=== PATIENT | female | born 1950 | race Caucasian/White ===

== ENCOUNTER 2020-05-17 11:10 | Day surgery (SDC) | payer OTHER ==
[2020-05-10 11:08] VITALS: BMI 29.9
--- OUTSIDE RECORDS SUMMARY | 2020-05-17 11:15 | XMS ---
:1950 Author Organization [facility] Support Name Relationship Address Phone UE, UNEMPLOYED Unavailable Unavailable Unavailable UE Unavailable Unavailable Unavailable DANIKA ISSA SISTER [address] [facility] [place] [address] CHRISELIANA HOUSTON Unavailable [address] [facility] [place] [address] Re-disclosure Warning The records that you are about to access may contain information from federally- assisted alcohol or drug abuse programs. If such information is present, then the following federally mandated warning applies: This information has been disclosed to you from records protected by federal confidentiality rules (42 CFR part 2). The federal rules prohibit you from making any further disclosure of this information unless further disclosure is expressly permitted by the written consent of the person to whom it pertains or as otherwise permitted by 42 CFR part 2. A general authorization for the release of medical or other information is NOT sufficient for this purpose. The Federal rules restrict any use of the information to criminally investigate or prosecute any alcohol or drug abuse patient.The records that you are about to access may contain highly sensitive health information, the redisclosure of which is protected by Article 27-F of the [facility] Public Health law. If you continue you may haveaccess to information: Regarding HIV / AIDS; Provided by facilities licensed or operated by the [facility] Office of Mental Health; or Provided by the [facility] Office for People With Developmental Disabilities. If such information is present, then the following [facility] mandated warning applies: This information has been disclosed to you from confidential records which are protected by state law. State law prohibits you from making any further disclosure of this information without the specific written consent of the person to whom it pertains, or as otherwise permitted by law. Any unauthorized further disclosure in violation of state law may result in a fine or custodial sentence or both. A general authorization for the release of medical or other information is NOT sufficient authorization for further disclosure. Insurance Providers Payer name Policy type Policy ID Covered Covered republican's Policy P danielle / Coverage republican ID relationship to [employer] ormation type har[employer] MEDICARE [id number]
[2020-05-17] MEDS ORDERED: OFLOXACIN 0.3% OPHTHALMIC SOLUTION 5 ML BOTTLE ONE (11:33)
[2020-05-17] MEDS ORDERED: CYCLOPENTOLATE HCL 1% OPHTH SOLN 2 ML BOTTLE ONE (11:33)
[2020-05-17] MEDS ORDERED: TROPICAMIDE 1% OPHTH SOLN 15 ML BOTTLE ONE (11:33)
[2020-05-17] MEDS ORDERED: KETOROLAC TROMETHAMINE 0.5% EYE DROP 1 DROP DROPS ONE (11:33)
[2020-05-17] MEDS ORDERED: PHENYLEPHRINE 2.5% OPHTH SOLN 15 ML BOTTLE ONE (11:34)
[2020-05-17] MEDS: KETOROLAC TROMETHAMINE 0.5% EYE DROP 1 DROP DROPS OS SCH ×5 (11:50→12:10)
[2020-05-17] MEDS: OFLOXACIN 0.3% OPHTHALMIC SOLUTION 5 ML BOTTLE OS SCH ×5 (11:50→12:10)
[2020-05-17] MEDS: TROPICAMIDE 1% OPHTH SOLN 15 ML BOTTLE OS SCH ×5 (11:50→12:10)
[2020-05-17] MEDS: CYCLOPENTOLATE HCL 1% OPHTH SOLN 2 ML BOTTLE OS SCH ×5 (11:50→12:10)
[2020-05-17] MEDS: PHENYLEPHRINE 2.5% OPHTH SOLN 15 ML BOTTLE OS SCH ×5 (11:50→12:10)
[2020-05-17 11:54] VITALS: TEMP 98.8
[2020-05-17] MEDS ORDERED: MIDAZOLAM HCL 2 MG/2 ML SINGLE DOSE VIAL ONE (13:50)
[2020-05-17] MEDS ORDERED: ACETAMINOPHEN 325 MG TABLET (FP) PO PRN (14:25)
[2020-05-17] MEDS ORDERED: BACITRACIN/POLYMYXIN OPH OINT 3.5 GM TUBE ONE (14:45)
[2020-05-17] MEDS ORDERED: TETRACAINE 0.5% OPHTH SOLN 2 ML BOTTLE ONE (14:46)
[2020-05-17] MEDS ORDERED: NEO/POLYMYX B SULF/DEXAMETH OPHTHALMIC 5ML BOTTLE ONE (14:46)
[2020-05-17] MEDS ORDERED: BETAXOLOL HCL 0.25% OPHTHALMIC 10 ML DROPSBTL ONE (14:46)
[2020-05-17] MEDS ORDERED: POVIDONE-IODINE 5% OPHTHALMIC PREP 30 ML SOLUTION ONE (14:46)
[2020-05-17] MEDS ORDERED: EPI-SHUGARCAINE (EPINEPHRINE 0.025% & LIDOCAINE-PF 0.75%) 4ML ONE (14:46)
--- NOTE | 2020-05-17 15:10 | OP ---
DATE OF OPERATION: 05/17/2020 PREOPERATIVE DIAGNOSIS: Cataract, left eye. POSTOPERATIVE DIAGNOSIS: Cataract, left eye. PROCEDURE: Cataract extraction via phacoemulsification with insertion of posterior chamber lens implant, left eye. SURGEON: Barrett Aguilar MD SIGHTER: Ada Ho MD ANESTHESIA: Topical with sedation. ESTIMATED BLOOD LOSS: Less than 1 mL. COMPLICATIONS: None. SPECIMENS: None. PROCEDURE: The patient was identified in the holding area. After all risks, benefits and alternatives were explained to the patient, informed consent was obtained. The left eye was marked with a marking pen. The patient then entered the operating room on an eye stretcher. After formal timeout was performed, topical tetracaine eye drops were instilled onto the left eye. Left eye was then prepped and draped in usual sterile fashion. An eyelid speculum was placed beneath the eyelids of the left eye. An inferotemporal paracentesis incision was created using a 15-degree blade. Topical preservative-free epinephrine and preservative-free lidocaine were then injected into the anterior chamber. Viscoelastic was then injected into the anterior chamber. A 2.4-mm keratome blade was then used to make a superotemporal incision. A 360-degree continuous curvilinear capsulorrhexis was then created using bent cystotome and Utrata forceps. Hydrodissection was performed using balanced saline solution on a cannula. Phacoemulsification was introduced. It disassembled and removed the nucleus in its entirety. Irrigation/aspiration was then used to remove any remaining cortical material from the eye. The capsular bag was reformed using viscoelastic. An Marcos model [id number] with a power of 19.5 diopters, serial number [id number] was inspected, found to be defect free and injected in the capsular bag. Irrigation/aspiration was then used to remove any remaining viscoelastic from the eye. All wounds were hydrated with balanced saline solution, noted to be watertight. There was a red reflex present. The anterior chamber was deep. The lens was perfectly centered in the capsular bag and the eye had adequate pressure. Topical antibiotic eye drops and ointment were then administered to the left eye. The eyelid speculum was removed from the left eye. Left eye was shielded. The patient tolerated the procedure well, left the operating room in stable condition, to follow up in the eye clinic tomorrow morning at 10 o'clock. Nataly [id number]
[2020-05-17 15:25] VITALS: BP 134/86; PULSE 68
== END 2020-05-17 15:15 | disposition home or self-care (01) ==
LOC: FASU 11:10
PROVIDERS: ATTEND Ophthalmology
PROC: 08RK3JZ Replacement of Left Lens with Synthetic Substitute, Percutaneous Approach (ICD-10-PCS; principal; 2020-05-17 13:59)
DX: H26.9 Unspecified cataract (principal)

== ENCOUNTER 2021-05-09 09:24 | Day surgery (SDC) | payer OTHER ==
[~2021-05-09 09:24] MED LIST: CYCLOPENTOLATE HCL 1% OPHTH SOLN 2 ML BOTTLE OD SCH; KETOROLAC TROMETHAMINE 0.5% EYE DROP 1 DROP DROPS OD SCH; OFLOXACIN 0.3% OPHTHALMIC SOLUTION 5 ML BOTTLE OD SCH; PHENYLEPHRINE 2.5% OPHTH SOLN 15 ML BOTTLE OD SCH; TROPICAMIDE 1% OPHTH SOLN 15 ML BOTTLE OD SCH
[2021-05-09] MEDS ORDERED: KETOROLAC TROMETHAMINE 0.5% EYE DROP 1 DROP DROPS ONE (09:39)
[2021-05-09] MEDS ORDERED: TROPICAMIDE 1% OPHTH SOLN 15 ML BOTTLE ONE (09:39)
[2021-05-09] MEDS ORDERED: CYCLOPENTOLATE HCL 1% OPHTH SOLN 2 ML BOTTLE ONE (09:39)
[2021-05-09] MEDS ORDERED: OFLOXACIN 0.3% OPHTHALMIC SOLUTION 5 ML BOTTLE ONE (09:39)
[2021-05-09] MEDS ORDERED: PHENYLEPHRINE 2.5% OPHTH SOLN 15 ML BOTTLE ONE (09:39)
[2021-05-09] MEDS ORDERED: OFLOXACIN 0.3% OPHTHALMIC SOLUTION 5 ML BOTTLE OD ONE ×5 (09:50→10:10)
[2021-05-09] MEDS ORDERED: PHENYLEPHRINE 2.5% OPHTH SOLN 15 ML BOTTLE OD ONE ×5 (09:50→10:10)
[2021-05-09] MEDS ORDERED: KETOROLAC TROMETHAMINE 0.5% EYE DROP 1 DROP DROPS OD ONE ×5 (09:50→10:10)
[2021-05-09] MEDS ORDERED: CYCLOPENTOLATE HCL 1% OPHTH SOLN 2 ML BOTTLE OD ONE ×5 (09:50→10:10)
[2021-05-09] MEDS ORDERED: TROPICAMIDE 1% OPHTH SOLN 15 ML BOTTLE OD ONE ×4 (09:50→10:10)
[2021-05-09 10:14] VITALS: BMI 28.7
[2021-05-09] MEDS ORDERED: BACITRACIN/POLYMYXIN OPH OINT 3.5 GM TUBE ONE (11:09)
[2021-05-09] MEDS ORDERED: BETAXOLOL HCL 0.25% OPHTHALMIC 10 ML DROPSBTL ONE (11:09)
[2021-05-09] MEDS ORDERED: EPI-SHUGARCAINE (EPINEPHRINE 0.025% & LIDOCAINE-PF 0.75%) 4ML ONE (11:10)
[2021-05-09] MEDS ORDERED: NEO/POLYMYX B SULF/DEXAMETH OPHTHALMIC 5ML BOTTLE ONE (11:10)
[2021-05-09] MEDS ORDERED: POVIDONE-IODINE 5% OPHTHALMIC PREP 30 ML SOLUTION ONE (11:10)
[2021-05-09] MEDS ORDERED: TETRACAINE 0.5% OPHTH SOLN 2 ML BOTTLE ONE (11:10)
[2021-05-09] MEDS ORDERED: MIDAZOLAM HCL 2 MG/2 ML SINGLE DOSE VIAL ONE (11:14)
[2021-05-09] MEDS ORDERED: ACETAMINOPHEN 325 MG TABLET (FP) PO PRN (12:09)
[2021-05-09 12:30] VITALS: TEMP 98.1
[2021-05-09 12:48] VITALS: BP 112/71; PULSE 76
== END 2021-05-09 13:00 | disposition home or self-care (01) ==
LOC: FASU 09:24
PROVIDERS: ATTEND Ophthalmology
PROC: 08RJ3JZ Replacement of Right Lens with Synthetic Substitute, Percutaneous Approach (ICD-10-PCS; principal; 2021-05-09 11:43)
DX: H26.9 Unspecified cataract (principal)

== ENCOUNTER 2023-06-24 11:12 | Observation (INO) | payer OTHER ==
[2023-06-24 11:23] VITALS: BMI 22.6
[2023-06-24] MEDS ORDERED: ACETAMINOPHEN 1000 MG/100 ML BAG IVPB ONE (12:17)
[2023-06-24] MEDS ORDERED: ACETAMINOPHEN INJECTION 100 ML IVPB ONE (12:20)
[2023-06-24 12:54] LABS: BASO % 0.6 % (0-2.0); EOS % 0.1 % (0-4.5); HEMATOCRIT 43.5 % (32.4-45.2); HEMOGLOBIN 14.7 GM/dL (10.7-15.3); LYMPH % 12.4 % (8-40); MCH 31.2 pg (25.7-33.7); MCHC 33.7 g/dl (32.0-36.0); MEAN CELL VOLUME 92.7 fl (80-96); MEAN PLT VOLUME 7.5 fl (7.5-11.1); NEUT % 79.9 % (42.8-82.8); PLATELET COUNT 355 10^3/uL (134-434); RDW 14.3 % (11.6-15.6); WHITE BLOOD COUNT 14.1 K/mm3 (4.0-10.0)
[2023-06-24 13:04] LABS: INR 1.1 (0.83-1.09); PROTHROMBIN TIME (PATIENT) 12.7 SEC (9.7-13.0)
[2023-06-24 13:06] LABS: ACTIVATED PTT 31.7 SECONDS (25.2-36.5)
[2023-06-24 13:07] LABS: POTASSIUM 5.4 mmol/L (3.5-5.1)
[2023-06-24 13:10] LABS: ALBUMIN 3.3 g/dl (3.4-5.0); BLOOD UREA NITROGEN 15.9 mg/dL (7-18); CALCIUM 9.2 mg/dL (8.5-10.1)
[2023-06-24 13:14] LABS: CREATININE 1.1 mg/dL (0.55-1.3)
[2023-06-24 13:15] LABS: BILIRUBIN,TOTAL 0.4 mg/dL (0.2-1)
[2023-06-24] MEDS ORDERED: LACTATED RINGERS SOLUTION 1000 ML INFUS.BAG IV ONE (14:56)
[2023-06-24] MEDS ORDERED: MAG HYDROX/AL HYDROX/SIMETH 30 ML UNIT-DOSE CUP PO ONE (15:29)
[2023-06-24] MEDS ORDERED: FAMOTIDINE 20 MG/50 ML IVPB 20 MG/50 ML MG IVPB ONE ×2 (15:29→15:33)
[2023-06-24] MEDS ORDERED: MAG HYDROX/AL HYDROX/SIMETH 30 ML UNIT-DOSE CUP ONE (15:33)
[2023-06-24 16:21] LABS: PH,URINE 6.5 (5.0-8.0); URINE APPEARANCE CLEAR; URINE BILIRUBIN NEGATIVE (NEGATIVE); URINE COLOR YELLOW; URINE GLUCOSE (UA) NEGATIVE (NEGATIVE); URINE KETONE TRACE (NEGATIVE); URINE LEUK ESTERASE NEGATIVE (NEGATIVE); URINE NITRITE POSITIVE (NEGATIVE); URINE PROTEIN NEGATIVE (NEGATIVE); URINE UROBILINOGEN 0.2 mg/dL (0.2-1.0)
[2023-06-24] MEDS ORDERED: MAG HYDROX/AL HYDROX/SIMETH 30 ML UNIT-DOSE CUP PO PRN (16:37)
[2023-06-24] MEDS ORDERED: ACETAMINOPHEN 325 MG TABLET (FP) PO PRN (18:41)
[2023-06-24] MEDS: PANTOPRAZOLE 40 MG TABLET PO SCH (19:47)
[2023-06-24] MEDS: ATORVASTATIN CA 40 MG TABLET (FP) PO SCH (21:16)
[2023-06-24] MEDS: NORTRIPTYLINE HCL 10 MG CAPSULE PO SCH (21:54)
[2023-06-25 07:57] LABS: BASO % 0.8 % (0-2.0); EOS % 1.2 % (0-4.5); HEMATOCRIT 41.6 % (32.4-45.2); HEMOGLOBIN 13.5 GM/dL (10.7-15.3); LYMPH % 24.6 % (8-40); MCH 30.8 pg (25.7-33.7); MCHC 32.3 g/dl (32.0-36.0); MEAN CELL VOLUME 95.2 fl (80-96); MEAN PLT VOLUME 8.1 fl (7.5-11.1); MONO % 10.3 % (3.8-10.2); NEUT % 63.1 % (42.8-82.8); PLATELET COUNT 334 10^3/uL (134-434); RBC 4.37 M/mm3 (3.60-5.2); RDW 14.3 % (11.6-15.6); WHITE BLOOD COUNT 11.4 K/mm3 (4.0-10.0)
[2023-06-25 08:20] LABS: ALBUMIN 3.3 g/dl (3.4-5.0); BLOOD UREA NITROGEN 12.6 mg/dL (7-18); CALCIUM 8.9 mg/dL (8.5-10.1); MAGNESIUM 2.3 mg/dL (1.8-2.4)
[2023-06-25 08:21] LABS: PHOSPHOROUS 3.7 mg/dL (2.5-4.9)
[2023-06-25 08:22] LABS: BILIRUBIN,TOTAL 0.5 mg/dL (0.2-1)
[2023-06-25 08:23] LABS: TOT PROT 7.4 g/dl (6.4-8.2)
[2023-06-25] MEDS: PANTOPRAZOLE 40 MG TABLET PO SCH (09:49)
[2023-06-25] MEDS: ASPIRIN COATED 81 MG TABLET.EC PO SCH (09:49)
[2023-06-25] MEDS ORDERED: ENOXAPARIN NA (PORCINE) 40 MG/0.4 ML DISP.SYRIN SQ SCH (10:00)
[2023-06-25] MEDS: ATORVASTATIN CA 40 MG TABLET (FP) PO SCH (21:21)
[2023-06-25] MEDS: NORTRIPTYLINE HCL 10 MG CAPSULE PO SCH (21:22)
[2023-06-25] MEDS ORDERED: MELATONIN 1 MG TABLET PO SCH (22:00)
[2023-06-26 07:50] LABS: BASO % 0.8 % (0-2.0); EOS % 1.3 % (0-4.5); HEMATOCRIT 42.8 % (32.4-45.2); HEMOGLOBIN 13.9 GM/dL (10.7-15.3); LYMPH % 28.4 % (8-40); MCH 30.9 pg (25.7-33.7); MCHC 32.5 g/dl (32.0-36.0); MEAN CELL VOLUME 94.9 fl (80-96); MONO % 9.9 % (3.8-10.2); NEUT % 59.6 % (42.8-82.8); PLATELET COUNT 336 10^3/uL (134-434); RBC 4.51 M/mm3 (3.60-5.2); WHITE BLOOD COUNT 12.2 K/mm3 (4.0-10.0)
[2023-06-26 08:01] LABS: POTASSIUM 4.3 mmol/L (3.5-5.1)
[2023-06-26 08:04] LABS: CALCIUM 9.4 mg/dL (8.5-10.1)
[2023-06-26 08:06] LABS: ALBUMIN 3.3 g/dl (3.4-5.0); BLOOD UREA NITROGEN 12.7 mg/dL (7-18); MAGNESIUM 2.6 mg/dL (1.8-2.4)
[2023-06-26 08:08] LABS: CREATININE 0.8 mg/dL (0.55-1.3)
[2023-06-26 08:09] LABS: BILIRUBIN,TOTAL 0.7 mg/dL (0.2-1); TOT PROT 7.5 g/dl (6.4-8.2)
[2023-06-26] MEDS: ASPIRIN COATED 81 MG TABLET.EC PO SCH (09:48)
[2023-06-26] MEDS: PANTOPRAZOLE 40 MG TABLET PO SCH (09:48)
[2023-06-26] MEDS ORDERED: ENOXAPARIN NA (PORCINE) 40 MG/0.4 ML DISP.SYRIN SQ SCH (10:00)
[2023-06-26 10:04] VITALS: RESP 18
[2023-06-26] MEDS ORDERED: LISINOPRIL 5 MG TABLET PO SCH (12:30)
[2023-06-26 18:26] VITALS: BP 150/89; PULSE 87; TEMP 99.1
[2023-06-27] MEDS ORDERED: CLOPIDOGREL BISULFATE 75 MG TABLET (FP) PO SCH (10:00)
== END 2023-06-26 19:00 | disposition home or self-care (01) ==
LOC: JER 11:12 → JERBED 15:40 → J4W 16:43
PROVIDERS: ADMIT Internal Medicine; ATTEND Internal Medicine
PROC: 3E033NZ Introduction of Analgesics, Hypnotics, Sedatives into Peripheral Vein, Percutaneous Approach (ICD-10-PCS; principal; 2023-06-24)
PROC: 3E023GC Introduction of Other Therapeutic Substance into Muscle, Percutaneous Approach (ICD-10-PCS; 2023-06-24)
PROC: 3E033GC Introduction of Other Therapeutic Substance into Peripheral Vein, Percutaneous Approach (ICD-10-PCS; 2023-06-24)
PROC: 3E0337Z Introduction of Electrolytic and Water Balance Substance into Peripheral Vein, Percutaneous Approach (ICD-10-PCS; 2023-06-24)
DX: R07.9 Chest pain, unspecified (principal); K21.9 Gastro-esophageal reflux disease without esophagitis; I69.859 Hemiplegia and hemiparesis following other cerebrovascular disease affecting unspecified side; F41.9 Anxiety disorder, unspecified; R26.89 Other abnormalities of gait and mobility; D72.829 Elevated white blood cell count, unspecified; E87.5 Hyperkalemia; R73.9 Hyperglycemia, unspecified; Z88.0 Allergy status to penicillin
CPT/HCPCS: 0241U-QW; 36415; 70450-TC; 70551-TC; 71045-TC-FY; 80053; 80061; 81003; 83036; 83690; 83735; 84100; 84484; 85025; 85610; 85730; 86850; 86900; 86901; 87086; 87186; 93005; 93010; 93306-TC; 93880-TC; 96361; 96365; 96372; 96375; 97116-GP; 97162-GP; 99285-25; G0378

== ENCOUNTER 2023-07-19 05:48 | Observation (INO) | payer OTHER ==
[2023-07-19] MEDS ORDERED: ONDANSETRON 4 MG/2 ML VIAL IVPUSH ONE (07:48)
[2023-07-19] MEDS ORDERED: FAMOTIDINE 20 MG/50 ML IVPB 20 MG/50 ML MG IVPB ONE ×3 (07:48→08:31)
[2023-07-19] MEDS ORDERED: ACETAMINOPHEN 1000 MG/100 ML BAG IVPB ONE (07:48)
[2023-07-19] MEDS ORDERED: MAG HYDROX/AL HYDROX/SIMETH 30 ML UNIT-DOSE CUP PO ONE (07:48)
[2023-07-19] MEDS ORDERED: SODIUM CHLORIDE 0.9% 500 ML INFUS.BAG IV ONE ×2 (07:54→08:05)
[2023-07-19] MEDS ORDERED: ONDANSETRON 4 MG/2 ML VIAL ONE (08:10)
[2023-07-19] MEDS ORDERED: ACETAMINOPHEN INJECTION 100 ML IVPB ONE (08:10)
[2023-07-19] MEDS ORDERED: MAG HYDROX/AL HYDROX/SIMETH 30 ML UNIT-DOSE CUP ONE (08:10)
[2023-07-19 08:21] LABS: BASO % 0.5 % (0-2.0); EOS % 0.6 % (0-4.5); LYMPH % 11.5 % (8-40); MCH 30.7 pg (25.7-33.7); MCHC 32.6 g/dl (32.0-36.0); MEAN CELL VOLUME 93.9 fl (80-96); MEAN PLT VOLUME 8.1 fl (7.5-11.1); MONO % 6.9 % (3.8-10.2); NEUT % 80.5 % (42.8-82.8); PLATELET COUNT 298 10^3/uL (134-434); RBC 4.25 M/mm3 (3.60-5.2); WHITE BLOOD COUNT 12.8 K/mm3 (4.0-10.0)
[2023-07-19 08:25] LABS: INR 1.02 (0.83-1.09); PROTHROMBIN TIME (PATIENT) 11.8 SEC (9.7-13.0)
[2023-07-19 08:27] LABS: ACTIVATED PTT 20.9 SECONDS (25.2-36.5)
[2023-07-19 08:35] LABS: POTASSIUM 4.3 mmol/L (3.5-5.1)
[2023-07-19 08:38] LABS: BLOOD UREA NITROGEN 18.5 mg/dL (7-18); CALCIUM 9.2 mg/dL (8.5-10.1)
[2023-07-19 08:39] LABS: ALBUMIN 3.4 g/dl (3.4-5.0)
[2023-07-19 08:41] LABS: CREATININE 1.1 mg/dL (0.55-1.3)
[2023-07-19 08:43] LABS: BILIRUBIN,TOTAL 0.4 mg/dL (0.2-1)
[2023-07-19 08:44] LABS: TOT PROT 7.7 g/dl (6.4-8.2)
[2023-07-19] MEDS ORDERED: ACETAMINOPHEN 325 MG TABLET (FP) PO PRN (17:55)
[2023-07-19] MEDS ORDERED: SODIUM CHLORIDE 1,000 ML IV STA ×2 (18:16→18:17)
[2023-07-19] MEDS: SUCRALFATE 1 GM TABLET (FP) PO SCH (20:53)
[2023-07-19] MEDS ORDERED: ATORVASTATIN CA 20 MG TABLET (FP) ONE (21:18)
[2023-07-19] MEDS ORDERED: ATORVASTATIN CA 40 MG TABLET (FP) PO SCH (22:00)
[2023-07-19] MEDS ORDERED: NORTRIPTYLINE HCL 10 MG CAPSULE PO SCH (22:00)
[2023-07-20 02:08] LABS: URINE APPEARANCE CLEAR; URINE BILIRUBIN NEGATIVE (NEGATIVE); URINE COLOR YELLOW; URINE GLUCOSE (UA) NEGATIVE (NEGATIVE); URINE KETONE NEGATIVE (NEGATIVE); URINE LEUK ESTERASE NEGATIVE (NEGATIVE); URINE NITRITE NEGATIVE (NEGATIVE); URINE PROTEIN NEGATIVE (NEGATIVE); URINE UROBILINOGEN 0.2 mg/dL (0.2-1.0)
[2023-07-20 04:50] VITALS: BMI 26.5
[2023-07-20] MEDS: SUCRALFATE 1 GM TABLET (FP) PO SCH (06:01)
[2023-07-20 07:30] LABS: EOS % 1.8 % (0-4.5); HEMATOCRIT 35.2 % (32.4-45.2); HEMOGLOBIN 11.4 GM/dL (10.7-15.3); LYMPH % 24.1 % (8-40); MCH 30.9 pg (25.7-33.7); MCHC 32.5 g/dl (32.0-36.0); MEAN CELL VOLUME 95.2 fl (80-96); MEAN PLT VOLUME 7.9 fl (7.5-11.1); MONO % 8.8 % (3.8-10.2); NEUT % 64.3 % (42.8-82.8); PLATELET COUNT 253 10^3/uL (134-434); RDW 13.6 % (11.6-15.6); WHITE BLOOD COUNT 11.2 K/mm3 (4.0-10.0)
[2023-07-20 07:34] LABS: CHLORIDE 110 mmol/L (98-107); POTASSIUM 3.8 mmol/L (3.5-5.1); SODIUM 142 mmol/L (136-145)
[2023-07-20 07:36] LABS: CALCIUM 8.6 mg/dL (8.5-10.1)
[2023-07-20 07:37] LABS: ANION GAP 7 mmol/L (4-13); BLOOD UREA NITROGEN 12.7 mg/dL (7-18); CO2 26 mmol/L (21-32); GLUCOSE,RANDOM 98 mg/dL (74-106)
[2023-07-20 07:40] LABS: CREATININE 0.9 mg/dL (0.55-1.3); SGOT/AST 14 U/L (15-37); SGPT/ALT 19 U/L (13-61)
[2023-07-20 07:42] LABS: BILIRUBIN,TOTAL 0.2 mg/dL (0.2-1); TOT PROT 5.9 g/dl (6.4-8.2)
[2023-07-20 07:43] LABS: ALK PHOS 43 U/L (45-117)
[2023-07-20 08:24] LABS: ALBUMIN 2.6 g/dl (3.4-5.0)
[2023-07-20] MEDS ORDERED: CLOPIDOGREL BISULFATE 75 MG TABLET (FP) PO SCH (10:00)
[2023-07-20] MEDS ORDERED: LISINOPRIL 5 MG TABLET PO SCH (10:00)
[2023-07-20] MEDS ORDERED: PANTOPRAZOLE 40 MG TABLET PO SCH (10:00)
[2023-07-20] MEDS ORDERED: CHOLECALCIFEROL (VIT D3) 1,000 UNIT (25 MCG) TABLET PO SCH (10:00)
[2023-07-20] MEDS ORDERED: ENOXAPARIN NA (PORCINE) 40 MG/0.4 ML DISP.SYRIN SQ SCH (10:00)
[2023-07-20 14:35] VITALS: BP 124/60; PULSE 77; RESP 17; TEMP 98.2
[2023-07-20] MEDS ORDERED: BISACODYL 10 MG SUPP.RECT PR ONE (14:45)
[2023-07-20] MEDS ORDERED: GLYCERIN 1 RECTAL SUPPOSITORY, ADULT RC ONE (15:00)
[2023-07-20] MEDS ORDERED: POLYETHYLENE GLYCOL (HEALTHYLAX) 3350 17 GM PACKET PO SCH (22:00)
== END 2023-07-20 17:30 | disposition home or self-care (01) ==
LOC: JER 05:48 → JERBED 16:41 → J4W 19:11
PROVIDERS: ADMIT Internal Medicine; ATTEND Internal Medicine
PROC: 3E033NZ Introduction of Analgesics, Hypnotics, Sedatives into Peripheral Vein, Percutaneous Approach (ICD-10-PCS; principal; 2023-07-19)
PROC: 3E023GC Introduction of Other Therapeutic Substance into Muscle, Percutaneous Approach (ICD-10-PCS; 2023-07-19)
PROC: 3E033GC Introduction of Other Therapeutic Substance into Peripheral Vein, Percutaneous Approach (ICD-10-PCS; 2023-07-19)
PROC: 3E0337Z Introduction of Electrolytic and Water Balance Substance into Peripheral Vein, Percutaneous Approach (ICD-10-PCS; 2023-07-19)
DX: K59.09 Other constipation (principal); R10.13 Epigastric pain; R07.9 Chest pain, unspecified; K21.9 Gastro-esophageal reflux disease without esophagitis; R42 Dizziness and giddiness; D72.829 Elevated white blood cell count, unspecified; E86.0 Dehydration; R19.7 Diarrhea, unspecified; I69.959 Hemiplegia and hemiparesis following unspecified cerebrovascular disease affecting unspecified side; F41.9 Anxiety disorder, unspecified; R93.89 Abnormal findings on diagnostic imaging of other specified body structures; Z88.0 Allergy status to penicillin
CPT/HCPCS: 0241U-QW; 36415; 71045-TC-FY; 74177-TC; 80053; 81003; 82550; 83690; 84484; 85025; 85610; 85730; 86140; 93005; 93010; 97116-GP; 97162-GP; 99285-25; G0378; Q9967

== ENCOUNTER 2023-09-20 07:04 | Day surgery (SDC) | payer OTHER ==
[2023-08-21 15:56] VITALS: BMI 23.3
[2023-09-20 07:27] VITALS: RESP 18
[2023-09-20] MEDS ORDERED: LIDOCAINE HCL/PF 2% SDV 5ML VIAL ONE (07:48)
[2023-09-20] MEDS ORDERED: PROPOFOL 120 ML ONE (07:48)
[2023-09-20 09:15] VITALS: TEMP 97
[2023-09-20 10:49] VITALS: BP 119/65; PULSE 61
== END 2023-09-20 10:15 | disposition home or self-care (01) ==
LOC: FASU-ENDO 07:04
PROVIDERS: ATTEND Internal Medicine Gastroenterology
PROC: 0DJD8ZZ Inspection of Lower Intestinal Tract, Via Natural or Artificial Opening Endoscopic (ICD-10-PCS; principal; 2023-09-20 08:53)
DX: R10.9 Unspecified abdominal pain (principal); K64.1 Second degree hemorrhoids

== ENCOUNTER 2023-11-12 08:29 | Emergency (ER) | payer OTHER ==
[2023-11-12 08:39] VITALS: BMI 24.1
[2023-11-12] MEDS ORDERED: SUCRALFATE 1 GM TABLET (FP) ONE (09:44)
[2023-11-12] MEDS ORDERED: ACETAMINOPHEN INJECTION 100 ML IVPB ONE (09:44)
[2023-11-12] MEDS ORDERED: FAMOTIDINE 20 MG/50 ML IVPB 20 MG/50 ML MG IVPB ONE (09:45)
[2023-11-12] MEDS ORDERED: MAG HYDROX/AL HYDROX/SIMETH 30 ML UNIT-DOSE CUP ONE (09:45)
[2023-11-12 09:56] LABS: BASO % 0.9 % (0-2.0); HEMATOCRIT 45.1 % (32.4-45.2); HEMOGLOBIN 14.9 GM/dL (10.7-15.3); LYMPH % 17.9 % (8-40); MCH 31.4 pg (25.7-33.7); MCHC 33.1 g/dl (32.0-36.0); MEAN PLT VOLUME 7.5 fl (7.5-11.1); NEUT % 72.2 % (42.8-82.8); PLATELET COUNT 302 10^3/uL (134-434); RBC 4.75 M/mm3 (3.60-5.2); RDW 13.6 % (11.6-15.6); WHITE BLOOD COUNT 9.8 K/mm3 (4.0-10.0)
[2023-11-12] MEDS: MAG HYDROX/AL HYDROX/SIMETH 30 ML UNIT-DOSE CUP PO ONE (10:02)
[2023-11-12] MEDS: SODIUM CHLORIDE 0.9% 500 ML INFUS.BAG IV ONE (10:02)
[2023-11-12] MEDS: ACETAMINOPHEN 1000 MG/100 ML BAG IVPB ONE (10:02)
[2023-11-12] MEDS: SUCRALFATE 1 GM TABLET (FP) PO ONE (10:02)
[2023-11-12] MEDS: FAMOTIDINE 20 MG/50 ML IVPB 20 MG/50 ML MG IVPB ONE (10:03)
[2023-11-12 10:15] LABS: POTASSIUM 4.3 mmol/L (3.5-5.1)
[2023-11-12 10:17] LABS: ALBUMIN 3.3 g/dl (3.4-5.0); CALCIUM 9.3 mg/dL (8.5-10.1)
[2023-11-12 10:18] LABS: BLOOD UREA NITROGEN 19.6 mg/dL (7-18); MAGNESIUM 2.5 mg/dL (1.8-2.4)
[2023-11-12 10:20] LABS: CREATININE 0.8 mg/dL (0.55-1.3)
[2023-11-12 10:22] LABS: BILIRUBIN,TOTAL 0.3 mg/dL (0.2-1); TOT PROT 7.3 g/dl (6.4-8.2)
[2023-11-12 12:37] VITALS: BP 143/56; PULSE 77; RESP 16; TEMP 98.2
== END 2023-11-12 13:08 | disposition home or self-care (01) ==
LOC: JER 08:29
PROC: 3E033GC Introduction of Other Therapeutic Substance into Peripheral Vein, Percutaneous Approach (ICD-10-PCS; principal; 2023-11-12)
PROC: 3E033NZ Introduction of Analgesics, Hypnotics, Sedatives into Peripheral Vein, Percutaneous Approach (ICD-10-PCS; 2023-11-12)
DX: R10.13 Epigastric pain (principal); R00.2 Palpitations; R07.9 Chest pain, unspecified; R06.02 Shortness of breath; R20.0 Anesthesia of skin
CPT/HCPCS: 36415; 71046-TC-FY; 80053; 83690; 83735; 84484; 85025; 93005; 93010; 93970-TC; 99285-25; J0131

== ENCOUNTER 2024-04-29 10:15 | Inpatient (IN) | payer OTHER ==
[2024-04-29 10:40] VITALS: BMI 24.1
[2024-04-29] MEDS ORDERED: ACETYLCYSTEINE INJECTION 20% 9,900 MG in DEXTROSE 5%-WATER - 250 ML IVPB ONE (11:12)
[2024-04-29] MEDS ORDERED: ACETYLCYSTEINE INJECTION 20% 3,300 MG in DEXTROSE 5%-WATER - 500 ML IVPB ONE (11:15)
[2024-04-29] MEDS ORDERED: WATER IVPB ONE (11:16)
[2024-04-29] MEDS ORDERED: ACETYLCYSTEINE IVPB ONE (11:16)
[2024-04-29] MEDS ORDERED: DEXTROSE 5% IVPB ONE (11:16)
[2024-04-29] MEDS: LACTATED RINGERS SOLUTION 1,000 ML/1,000 ML INFUS.BAG IV STA (11:28)
[2024-04-29] MEDS ORDERED: CEFEPIME 2 GM/100 ML BAG IVPB ONE (11:29)
[2024-04-29 11:34] LABS: BASO % 0.8 % (0-2.0); EOS % 0.8 % (0-4.5); HEMATOCRIT 39.1 % (32.4-45.2); HEMOGLOBIN 12.5 GM/dL (10.7-15.3); LYMPH % 25.3 % (8-40); MCH 29.2 pg (25.7-33.7); MEAN CELL VOLUME 91.1 fl (80-96); MONO % 7.2 % (3.8-10.2); NEUT % 65.9 % (42.8-82.8); PLATELET COUNT 340 10^3/uL (134-434); RDW 15.5 % (11.6-15.6)
[2024-04-29] MEDS: CEFEPIME HCL 2 GM VIAL (RESTRICTED TO ID) IVPB ONE (11:36)
[2024-04-29 11:39] LABS: VENOUS BASE EXCESS -6.9 mmol/L (-2-2); VENOUS O2 SATURATION 77.7 % (70-80); VENOUS PCO2 44.9 mmHg (38-52); VENOUS PH 7.265 (7.310-7.410)
[2024-04-29 11:40] LABS: EPI CELLS 1 /uL (0-25.1); HYALINE CASTS 0 /uL (0-3.1); PH,URINE 5.5 (5.0-8.0); URINE APPEARANCE CLOUDY; URINE BACTERIA >9,000 /uL (0-1359); URINE BILIRUBIN NEGATIVE (NEGATIVE); URINE COLOR YELLOW; URINE GLUCOSE (UA) NEGATIVE (NEGATIVE); URINE KETONE NEGATIVE (NEGATIVE); URINE LEUK ESTERASE 2+ (NEGATIVE); URINE NITRITE POSITIVE (NEGATIVE); URINE PROTEIN TRACE (NEGATIVE); URINE RBC 15 /uL (0-23.9); URINE UROBILINOGEN 0.2 mg/dL (0.2-1.0); URINE WBC 1195 /uL (0-25.8)
[2024-04-29 11:42] LABS: INR 1.01 (0.83-1.09); PROTHROMBIN TIME (PATIENT) 11.4 SEC (9.7-13.0)
[2024-04-29 11:44] LABS: ACTIVATED PTT 26.4 SECONDS (25.2-36.5)
[2024-04-29] MEDS ORDERED: VANCOMYCIN 1 GRAM (PRE-DOCKED) 1,000 MG/250 ML BAG IVPB ONE (11:58)
[2024-04-29 11:59] LABS: LACTIC ACID 8.3 mmol/L (0.4-2.0)
[2024-04-29 12:07] LABS: CALCIUM 9.1 mg/dL (8.5-10.1)
[2024-04-29 12:08] LABS: ALBUMIN 3.3 g/dl (3.4-5.0); BLOOD UREA NITROGEN 16.3 mg/dL (7-18)
[2024-04-29] MEDS: VANCOMYCIN 1,000 MG in DEXTROSE 5%-WATER - 250 ML IVPB ONE (12:09)
[2024-04-29 12:13] LABS: BILIRUBIN,TOTAL 0.3 mg/dL (0.2-1); TOT PROT 6.9 g/dl (6.4-8.2)
[2024-04-29] MEDS: ACETYLCYSTEINE INJECTION 20% 9,900 MG in DEXTROSE 5%-WATER - 250 ML IVPB ONE (12:24)
[2024-04-29] MEDS ORDERED: NOREPINEPHRINE BITARTRATE 4 MG/4 ML ML IV ONE (13:08)
[2024-04-29] MEDS ORDERED: NOREPINEPHRINE BITARTRATE 8,000 MCG in SODIUM CHLORIDE 492 ML IV SCH (13:30)
[2024-04-29] MEDS: ACETYLCYSTEINE INJECTION 20% 3,300 MG in DEXTROSE 5%-WATER - 500 ML IVPB ONE (13:41)
[2024-04-29] MEDS: SODIUM CHLORIDE 1,000 ML IV SCH ×2 (14:31→20:26)
[2024-04-29 16:08] LABS: LACTIC ACID 4.2 mmol/L (0.4-2.0)
[2024-04-29] MEDS: NOREPINEPHRINE BITARTRATE 4,000 MCG in SODIUM CHLORIDE 496 ML IV SCH (16:35)
[2024-04-29] MEDS: DEXTROSE 5% IVPB ONE (18:18)
[2024-04-29] MEDS: ACETYLCYSTEINE IVPB ONE (18:18)
[2024-04-29] MEDS: WATER IVPB ONE (18:18)
[2024-04-29 18:35] LABS: LACTIC ACID 2.3 mmol/L (0.4-2.0)
[2024-04-29 19:15] LABS: URINE AMPHETAMINES NEGATIVE (NEGATIVE); URINE BARBITURATES NEGATIVE (NEGATIVE)
[2024-04-29 19:16] LABS: COCAINE, UR NEGATIVE (NEGATIVE); METHADONE, UR NEGATIVE (NEGATIVE); OPIATES, URI NEGATIVE (NEGATIVE); PHENCYCLIDINE,URINE NEGATIVE (NEGATIVE); URINE BENZODIAZEPINES NEGATIVE (NEGATIVE)
[2024-04-30] MEDS: ONDANSETRON 4 MG/2 ML VIAL IVPUSH PRN (01:36)
[2024-04-30 10:17] LABS: HEMOGLOBIN 12.3 GM/dL (10.7-15.3); MCH 29.5 pg (25.7-33.7); MCHC 33.1 g/dl (32.0-36.0); MEAN CELL VOLUME 89.1 fl (80-96); PLATELET COUNT 268 10^3/uL (134-434); RBC 4.16 M/mm3 (3.60-5.2); RDW 15.2 % (11.6-15.6); WHITE BLOOD COUNT 13.6 K/mm3 (4.0-10.0)
[2024-04-30 10:21] LABS: INR 1.09 (0.83-1.09); PROTHROMBIN TIME (PATIENT) 12.5 SEC (9.7-13.0)
[2024-04-30] MEDS: ENOXAPARIN NA (PORCINE) 40 MG/0.4 ML DISP.SYRIN SQ SCH (10:52)
[2024-04-30 12:43] LABS: POTASSIUM 3.6 mmol/L (3.5-5.1)
[2024-04-30 12:48] LABS: BLOOD UREA NITROGEN 5.8 mg/dL (7-18); CALCIUM 8.4 mg/dL (8.5-10.1)
[2024-04-30 12:51] LABS: CREATININE 0.6 mg/dL (0.55-1.3)
[2024-04-30 12:53] LABS: BILIRUBIN,TOTAL 0.3 mg/dL (0.2-1); TOT PROT 5.9 g/dl (6.4-8.2)
[2024-04-30 13:01] LABS: ALBUMIN 2.6 g/dl (3.4-5.0)
[2024-05-01] MEDS: FLUoxetine HCL 20 MG CAPSULE PO SCH (09:08)
[2024-05-01 09:43] LABS: BASO % 0.8 % (0-2.0); EOS % 4.5 % (0-4.5); HEMATOCRIT 38.1 % (32.4-45.2); HEMOGLOBIN 12.4 GM/dL (10.7-15.3); LYMPH % 18.6 % (8-40); MCH 29.1 pg (25.7-33.7); MCHC 32.6 g/dl (32.0-36.0); MEAN CELL VOLUME 89.3 fl (80-96); MEAN PLT VOLUME 8.1 fl (7.5-11.1); NEUT % 68.1 % (42.8-82.8); PLATELET COUNT 260 10^3/uL (134-434); RBC 4.27 M/mm3 (3.60-5.2); RDW 15.5 % (11.6-15.6); WHITE BLOOD COUNT 11.6 K/mm3 (4.0-10.0)
[2024-05-01 09:52] LABS: INR 1.01 (0.83-1.09); PROTHROMBIN TIME (PATIENT) 11.4 SEC (9.7-13.0)
[2024-05-01 10:09] LABS: POTASSIUM 3.6 mmol/L (3.5-5.1)
[2024-05-01 10:11] LABS: ALBUMIN 2.9 g/dl (3.4-5.0); BLOOD UREA NITROGEN 9.2 mg/dL (7-18); CALCIUM 8.9 mg/dL (8.5-10.1)
[2024-05-01 10:14] LABS: CREATININE 0.6 mg/dL (0.55-1.3)
[2024-05-01 10:17] LABS: BILIRUBIN,TOTAL 0.3 mg/dL (0.2-1); TOT PROT 6.2 g/dl (6.4-8.2)
[2024-05-02] MEDS: ALPRAZolam 0.25 MG TABLET PO ONE (09:08)
[2024-05-03] MEDS: hydrOXYzine PAMOATE 25 MG CAPSULE (FP) PO ONE (14:04)
[2024-05-04] MEDS ORDERED: MAG HYDROX/AL HYDROX/SIMETH 30 ML UNIT-DOSE CUP PO ONE (07:32)
[2024-05-04] MEDS: MAG HYDROX/AL HYDROX/SIMETH 30 ML UNIT-DOSE CUP PO ONE (11:08)
[2024-05-04] MEDS: hydrOXYzine PAMOATE 25 MG CAPSULE (FP) PO ONE (16:24)
[2024-05-05] MEDS: ACETAMINOPHEN 1000 MG/100 ML BAG IVPB ONE (04:48)
[2024-05-05] MEDS: hydrOXYzine PAMOATE 50 MG CAPSULE (FP) PO PRN (13:46)
[2024-05-05] MEDS: hydrOXYzine PAMOATE 25 MG CAPSULE (FP) PO ONE (17:04)
[2024-05-05] MEDS: KETOROLAC TROMETHAMINE 15 MG/ML VIAL IVPUSH ONE (18:40)
[2024-05-05] MEDS: PANTOPRAZOLE SODIUM 40 MG VIAL IVPUSH ONE (18:40)
[2024-05-05] MEDS: CEFTRIAXONE 1 GM in DEXTROSE 5%-WATER - 50 ML IVPB ONE (20:24)
[2024-05-06] MEDS: ACETAMINOPHEN 1000 MG/100 ML BAG IVPB ONE (04:17)
[2024-05-06 06:16] LABS: HEMATOCRIT 39.8 % (32.4-45.2); HEMOGLOBIN 12.9 GM/dL (10.7-15.3); MCH 29.2 pg (25.7-33.7); MCHC 32.5 g/dl (32.0-36.0); MEAN CELL VOLUME 89.9 fl (80-96); MEAN PLT VOLUME 7.8 fl (7.5-11.1); PLATELET COUNT 363 10^3/uL (134-434); RBC 4.43 M/mm3 (3.60-5.2); RDW 15.3 % (11.6-15.6); WHITE BLOOD COUNT 13.8 K/mm3 (4.0-10.0)
[2024-05-06 07:26] LABS: POTASSIUM 4.2 mmol/L (3.5-5.1)
[2024-05-06 07:30] LABS: ALBUMIN 3.1 g/dl (3.4-5.0); CALCIUM 8.7 mg/dL (8.5-10.1)
[2024-05-06 07:33] LABS: CREATININE 0.8 mg/dL (0.55-1.3)
[2024-05-06 07:35] LABS: TOT PROT 7.4 g/dl (6.4-8.2)
[2024-05-06 07:37] LABS: BILIRUBIN,TOTAL 0.2 mg/dL (0.2-1)
[2024-05-06] MEDS: PANTOPRAZOLE SODIUM 40 MG VIAL IVPUSH SCH (09:05)
[2024-05-06] MEDS: IOHEXOL (OMNIPAQUE IV) 350 MG/ML - 100 ML BOTTLE PO ONE (14:23)
[2024-05-06 16:08] LABS: PHOSPHOROUS 3.8 mg/dL (2.5-4.9)
[2024-05-06] MEDS: POLYETHYLENE GLYCOL (HEALTHYLAX) 3350 17 GM PACKET PO SCH (18:58)
[2024-05-06] MEDS: CEPHALEXIN MONOHYDRATE 500 MG CAPSULE (UD) PO SCH (21:28)
[2024-05-06] MEDS: SENNOSIDES 8.8 MG/5 ML SYRUP PO SCH (21:28)
[2024-05-07] MEDS: clonazePAM 0.5 MG TABLET PO PRN (01:21)
[2024-05-07 07:55] LABS: BASO % 1.4 % (0-2.0); EOS % 6.3 % (0-4.5); HEMATOCRIT 39.4 % (32.4-45.2); HEMOGLOBIN 12.7 GM/dL (10.7-15.3); MCH 29.1 pg (25.7-33.7); MCHC 32.3 g/dl (32.0-36.0); MEAN CELL VOLUME 90.1 fl (80-96); MEAN PLT VOLUME 7.9 fl (7.5-11.1); MONO % 8.6 % (3.8-10.2); NEUT % 60.7 % (42.8-82.8); PLATELET COUNT 386 10^3/uL (134-434); RBC 4.37 M/mm3 (3.60-5.2); RDW 15.5 % (11.6-15.6); WHITE BLOOD COUNT 11.6 K/mm3 (4.0-10.0)
[2024-05-07 08:11] LABS: POTASSIUM 4.6 mmol/L (3.5-5.1)
[2024-05-07 08:15] LABS: ALBUMIN 3.2 g/dl (3.4-5.0); BLOOD UREA NITROGEN 14.6 mg/dL (7-18); MAGNESIUM 2.2 mg/dL (1.8-2.4)
[2024-05-07 08:18] LABS: CREATININE 0.6 mg/dL (0.55-1.3)
[2024-05-07 08:19] LABS: PHOSPHOROUS 3.7 mg/dL (2.5-4.9)
[2024-05-07 08:20] LABS: BILIRUBIN,TOTAL 0.3 mg/dL (0.2-1)
[2024-05-07] MEDS: MAG HYDROX/AL HYDROX/SIMETH 30 ML UNIT-DOSE CUP PO ONE (15:11)
[2024-05-08] MEDS: IBUPROFEN 400 MG TABLET (FP) PO ONE (13:33)
[2024-05-09] MEDS: PANTOPRAZOLE 40 MG TABLET PO SCH (06:00)
[2024-05-09] MEDS: IBUPROFEN 400 MG TABLET (FP) PO ONE (17:49)
[2024-05-09] MEDS: clonazePAM 0.5 MG TABLET PO ONE (22:58)
[2024-05-10 06:08] VITALS: RESP 16
[2024-05-10] MEDS: clonazePAM 0.25 MG ODT TABLETS SL ONE (11:35)
[2024-05-10 14:12] VITALS: BP 119/53; PULSE 67; TEMP 99.1
== END 2024-05-10 14:40 | DRG 917 ==
LOC: JER 10:15 → JERBED 14:34 → J4S 23:40
PROVIDERS: ADMIT Internal Medicine; ATTEND Internal Medicine
DX: T43.212A Poisoning by selective serotonin and norepinephrine reuptake inhibitors, intentional self-harm, initial encounter (principal); R40.2A Nontraumatic coma due to underlying condition; E87.20 Acidosis, unspecified; N39.0 Urinary tract infection, site not specified; R45.851 Suicidal ideations; T39.1X2A Poisoning by 4-Aminophenol derivatives, intentional self-harm, initial encounter; Y92.099 Unspecified place in other non-institutional residence as the place of occurrence of the external cause; F41.9 Anxiety disorder, unspecified; K21.9 Gastro-esophageal reflux disease without esophagitis; F32.9 Major depressive disorder, single episode, unspecified; I95.89 Other hypotension; R40.4 Transient alteration of awareness; B96.1 Klebsiella pneumoniae [K. pneumoniae] as the cause of diseases classified elsewhere; R10.13 Epigastric pain; Z86.73 Personal history of transient ischemic attack (TIA), and cerebral infarction without residual deficits
CPT/HCPCS: 0241U-QW; 36415; 71045-TC-FY; 74177-TC; 80053; 80307; 81003; 82550; 82803; 82962; 83605; 83735; 84100; 84484; 85025; 85027; 85610; 85730; 86850; 86900; 86901; 87086; 87186; 93005; 93010; 97116-GP; 97162-GP; 99291; J0131; Q9967

== ENCOUNTER 2024-07-23 09:36 | Emergency (ER) | payer OTHER ==
[2024-07-23 09:49] VITALS: RESP 22; TEMP 97.7; BMI 23.6
[2024-07-23 12:15] LABS: BASO % 0.4 % (0-2.0); EOS % 0.7 % (0-4.5); HEMATOCRIT 42.4 % (32.4-45.2); LYMPH % 16.2 % (8-40); MCH 30.2 pg (25.7-33.7); MCHC 32.9 g/dl (32.0-36.0); MEAN CELL VOLUME 91.9 fl (80-96); MEAN PLT VOLUME 7.7 fl (7.5-11.1); MONO % 6.5 % (3.8-10.2); NEUT % 76.2 % (42.8-82.8); PLATELET COUNT 353 10^3/uL (134-434); RBC 4.61 M/mm3 (3.60-5.2); RDW 15.8 % (11.6-15.6); WHITE BLOOD COUNT 11.5 K/mm3 (4.0-10.0)
[2024-07-23 12:37] LABS: POTASSIUM 3.7 mmol/L (3.5-5.1)
[2024-07-23 12:39] LABS: CALCIUM 9.3 mg/dL (8.5-10.1)
[2024-07-23 12:40] LABS: ALBUMIN 3.6 g/dl (3.4-5.0); BLOOD UREA NITROGEN 17.6 mg/dL (7-18)
[2024-07-23 12:43] LABS: CREATININE 0.7 mg/dL (0.55-1.3)
[2024-07-23 12:45] LABS: BILIRUBIN,TOTAL 0.4 mg/dL (0.2-1); TOT PROT 7.1 g/dl (6.4-8.2)
[2024-07-23 14:55] VITALS: BP 123/75; PULSE 74
[2024-07-23] MEDS ORDERED: busPIRone HCL 5 MG TABLET ONE (15:15)
[2024-07-23] MEDS: busPIRone HCL 5 MG TABLET PO ONE (15:20)
[2024-07-23] MEDS: FLUoxetine HCL 10 MG CAPSULE PO ONE (15:27)
[2024-07-23] MEDS: FLUoxetine HCL 20 MG CAPSULE PO ONE (15:41)
== END 2024-07-23 15:55 | disposition home or self-care (01) ==
LOC: JER 09:36
DX: F41.9 Anxiety disorder, unspecified (principal); R06.02 Shortness of breath; R25.1 Tremor, unspecified
CPT/HCPCS: 36415; 71045-TC-FY; 80053; 80307; 84439; 84443; 84484; 85025; 93005; 93010; 99285-25

== ENCOUNTER 2025-03-02 14:40 | Emergency (ER) | payer OTHER ==
[2025-03-02 14:55] VITALS: BP 121/64; PULSE 76; RESP 20; TEMP 98.2; BMI 23.3
[2025-03-02] MEDS ORDERED: FAMOTIDINE 20 MG/50 ML IVPB 20 MG/50 ML MG IVPB ONE (16:07)
[2025-03-02] MEDS ORDERED: MAG HYDROX/AL HYDROX/SIMETH 30 ML UNIT-DOSE CUP ONE (16:07)
[2025-03-02] MEDS ORDERED: ONDANSETRON 4 MG/2 ML VIAL ONE (16:07)
[2025-03-02] MEDS ORDERED: ACETAMINOPHEN INJECTION 100 ML ONE (16:09)
[2025-03-02] MEDS: ACETAMINOPHEN 1000 MG/100 ML BAG IVPB ONE (16:18)
[2025-03-02] MEDS: ONDANSETRON 4 MG/2 ML VIAL IVPUSH ONE (16:19)
[2025-03-02] MEDS: FAMOTIDINE 20 MG/50 ML IVPB 20 MG/50 ML MG IVPB ONE (16:19)
[2025-03-02] MEDS: MAG HYDROX/AL HYDROX/SIMETH 30 ML UNIT-DOSE CUP PO ONE (16:19)
[2025-03-02 16:24] LABS: ABSOLUTE IMMATURE GRANULOCYTES 0.02 x10^3/uL (0.0-0.031); BASOPHILS # 0.08 x10^3/uL (0.01-0.08); EOSINOPHIL % 1.1 % (0.7-5.8); EOSINOPHILS # 0.12 x10^3/uL (0.04-0.36); MCHC 32.2 g/dl (32.2-35.5); MEAN CELL VOLUME 97.9 fl (79.4-94.8); MEAN PLT VOLUME 9.5 fl (9.4-12.3); MONOCYTE # 0.87 x10^3/uL (0.24-0.86); MONOCYTE % 8.0 % (4.7-12.5); RDW 13.0 % (12.4-16.6)
[2025-03-02 16:51] LABS: CO2 26.0 mmol/L (21-32)
[2025-03-02 16:52] LABS: GLUCOSE,RANDOM 99.0 mg/dL (74-106)
[2025-03-02 16:54] LABS: SGOT/AST 15.0 U/L (15-37); SGPT/ALT 20.0 U/L (13-61)
[2025-03-02 16:55] LABS: CREATININE 0.9 mg/dL (0.55-1.3)
[2025-03-02 16:56] LABS: TOT PROT 7.2 g/dl (6.4-8.2)
[2025-03-02 16:57] LABS: ALK PHOS 45.0 U/L (45-117)
[2025-03-02] MEDS ORDERED: IBUPROFEN 600 MG TABLET (FP) PO ONE (17:15)
[2025-03-02] MEDS ORDERED: LIDOCAINE 5% TOPICAL PATCH ONE (17:16)
[2025-03-02] MEDS: IBUPROFEN 600 MG TABLET (FP) PO ONE (17:25)
[2025-03-02] MEDS: LIDOCAINE 5% TOPICAL PATCH TP ONE (17:26)
[2025-03-02] MEDS ORDERED: LIDOCAINE PATCH REMOVAL MC SCH (22:00)
== END 2025-03-02 18:12 | disposition home or self-care (01) ==
LOC: JER 14:40
PROC: 3E033GC Introduction of Other Therapeutic Substance into Peripheral Vein, Percutaneous Approach (ICD-10-PCS; principal; 2025-03-02)
PROC: 3E033GC Introduction of Other Therapeutic Substance into Peripheral Vein, Percutaneous Approach (ICD-10-PCS; 2025-03-02)
PROC: 3E033GC Introduction of Other Therapeutic Substance into Peripheral Vein, Percutaneous Approach (ICD-10-PCS; 2025-03-02)
DX: R07.89 Other chest pain (principal); R10.13 Epigastric pain; R19.7 Diarrhea, unspecified
CPT/HCPCS: 36415; 71045-TC-FY; 80053; 83605; 83735; 84484; 85025; 93005; 93010; 96365; 96375; 99285-25